=== PATIENT | male | born 1960 | race Caucasian/White ===

== ENCOUNTER 2021-03-07 14:52 | Inpatient (IN) | payer MEDICARE ==
[~2021-03-07] VITALS: Ht 165.1 cm; Wt 58.1 kg
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
[2021-03-07] MEDS ORDERED: MOME17SP (15:29)
[2021-03-07] MEDS ORDERED: DIVA500T2 PO (15:29)
[2021-03-07] MEDS ORDERED: LORA10TA68 PO (15:29)
[2021-03-07 15:52] VITALS: BP 125/75
[2021-03-07 16:00] VITALS: BP 125/72
[2021-03-07] MEDS ORDERED: MAG HYDROX/AL HYDROX/SIMETH 30 ML UDC PO PRN (16:00)
[2021-03-07] MEDS ORDERED: BLOOD SUGAR DIAGNOSTIC 1 EACH STRIP IN ONE (16:00)
[2021-03-07] MEDS ORDERED: MAGNESIUM HYDROXIDE 30 ML UDC PO PRN (16:00)
[2021-03-07] MEDS: NICOTINE PATCH (7MG) 7 MG PATCH.TD24 TD SCH ×2 (16:30→17:03)
[2021-03-07] MEDS: LORATADINE 10 MG TABLET PO SCH (17:30)
[2021-03-07] MEDS: MOMETASONE FUROATE NASAL SUSP 17 GM BOTTLE SCH (18:00)
--- NOTE | 2021-03-07 19:21 | NUR ---
GPS/RN PT REFUSED NICOTINE PATCH AND CLARITIN PO TODAY. ENDORSED TO MICRO PHOTOGRAPHER TO TRY TO DO SKIN ASSESSMENT.
[2021-03-07 20:55] VITALS: BP 117/78
--- NOTE | 2021-03-07 22:53 | NUR ---
RN NOTES: REFUSED SKIN ASSESSMENT AND PICTURES TAKEN PT. REFUSED FULL BODY SKIN ASSESSMENT AND PICTURES TAKEN AT THIS TIME, PER PT.I WANT SLEEP AND TIRED ,ENCOURAGED X3 RISKS /BENEFITS EXPLINED , PT. STRONGLY REFUSED.
--- NOTE | 2021-03-07 23:00 | NUR ---
RN NOTES : PT. ALLOWED ONLY VISUALLY BODY PARTS SKIN ASSEMENT AND PICTURES TAKEN AT THIS TIME. BUT PT. STILL REFUSED FULL BODY SKIN ASSESSMENT AND PICTURES TAKEN.
[2021-03-08] MEDS: LORAZEPAM 0.5 MG TABLET PO PRN ×3 (04:19→17:34)
--- NOTE | 2021-03-08 04:20 | NUR ---
RN NOTES: ANXIETY PT.C/O VERY ANXIOUS , RESTLESS , ATIVAN 0.5 MG GIVEN PER PT. REQUEST, WILL CONTINUE TO MONITOR.
[2021-03-08 06:51] LABS: ALBUMIN 2.5 g/dL (3.4-5.0); BILIRUBIN,TOTAL 0.2 mg/dL (0.2-1.0); CALCIUM, SERUM 7.7 mg/dL (8.5-10.1); CHOLESTEROL 120 mg/dL (<200); CREATININE 0.9 mg/dL (0.6-1.3); HDL CHOLESTEROL 37 mg/dL (40-60); LDL 66 mg/dL (0-99); TRIGLYCERIDES 183 mg/dL (30-150)
[2021-03-08 08:00] VITALS: BP 132/82
[2021-03-08] MEDS: NICOTINE PATCH (7MG) 7 MG PATCH.TD24 TD SCH ×2 (09:00→09:06)
[2021-03-08] MEDS: LORATADINE 10 MG TABLET PO SCH (09:06)
[2021-03-08] MEDS: MOMETASONE FUROATE NASAL SUSP 17 GM BOTTLE SCH (09:06)
--- NOTE | 2021-03-08 09:43 | NUR ---
given ativan for restlessness and agitation.
[2021-03-08] MEDS ORDERED: LORAZEPAM 0.5 MG TABLET PO ONE (10:00)
--- NOTE | 2021-03-08 10:03 | NUR ---
given extra ativan 0.5 mg for agitation per dr. bolaños's request.
[2021-03-08] MEDS: DIVALPROEX SODIUM 125 MG CAP.SPRINK PO SCH ×2 (13:00→16:37)
[2021-03-08] MEDS: risperiDONE 1 MG TABLET PO SCH ×2 (13:00→21:14)
--- NOTE | 2021-03-08 13:00 | NUR ---
1 PM MEDS HELD,PT. TOO SEDATED.
[2021-03-08 16:00] VITALS: BP 135/76
--- NOTE | 2021-03-08 17:39 | NUR ---
very restless,given ativan.
--- NOTE | 2021-03-08 18:08 | NUR ---
although had ativan,seems a little agitated.
[2021-03-08 20:45] VITALS: BP 146/89
--- NOTE | 2021-03-08 22:53 | NUR ---
MISTAKENLY DOCUMENTED ON EB'S ACCOUNT THE PREVIOUS MORNING RN.
[2021-03-09] MEDS: TEMAZEPAM 7.5 MG CAPSULE PO PRN (00:54)
--- NOTE | 2021-03-09 00:54 | NUR ---
RN NOTE PATIENT C/O INABILITY TO SLEEP. PER PT REQUEST PRN RESTORIL 7.5 MG 1 CAP PO HS PRN ADMINISTERED AT THIS TIME. WILL CONTINUE TO MONITOR
[2021-03-09 08:00] VITALS: BP 126/80
[2021-03-09] MEDS: risperiDONE 1 MG TABLET PO SCH ×2 (08:50→20:44)
[2021-03-09] MEDS: LORATADINE 10 MG TABLET PO SCH (08:50)
[2021-03-09] MEDS: DIVALPROEX SODIUM 125 MG CAP.SPRINK PO SCH ×3 (08:50→16:16)
[2021-03-09] MEDS: MOMETASONE FUROATE NASAL SUSP 17 GM BOTTLE SCH (08:51)
[2021-03-09] MEDS: NICOTINE PATCH (7MG) 7 MG PATCH.TD24 TD SCH (08:51)
[2021-03-09 16:00] VITALS: BP 138/87
[2021-03-09] MEDS: ACETAMINOPHEN 325 MG TABLET PO PRN (18:55)
[2021-03-09 20:00] VITALS: BP 128/77
[2021-03-09 20:46] VITALS: BP 128/77
[2021-03-10] MEDS: TEMAZEPAM 7.5 MG CAPSULE PO PRN ×2 (01:18→21:53)
--- NOTE | 2021-03-10 01:18 | NUR ---
GPS RN NOTE PATIENT C/O INABILITY TO SLEEP. PER PT REQUEST, PRN 1 CAPSULE OF RESTORIL 7.5 MG ADMINISTERED AT THIS TIME. WILL CONTINUE TO MONITOR.
[2021-03-10 08:00] VITALS: BP 127/78
[2021-03-10] MEDS: LORATADINE 10 MG TABLET PO SCH (08:37)
[2021-03-10] MEDS: risperiDONE 1 MG TABLET PO SCH ×3 (08:37→21:53)
[2021-03-10] MEDS: DIVALPROEX SODIUM 125 MG CAP.SPRINK PO SCH ×2 (08:37→12:38)
[2021-03-10] MEDS: NICOTINE PATCH (7MG) 7 MG PATCH.TD24 TD SCH (08:37)
[2021-03-10] MEDS: MOMETASONE FUROATE NASAL SUSP 17 GM BOTTLE SCH (08:39)
--- NOTE | 2021-03-10 10:17 | NUR ---
GPS HANDS PARTER: PSYCH F/U SEEN BY DR. YIP WITH ORDERS. ORDERS ACKNOWLEDGED.
--- NOTE | 2021-03-10 15:53 | NUR ---
Initial D/C plan: The pt. states that he has been residing with his cousin, Leeroy Knutson at[[facility]]. Pt. is unable to provide the completed address and a phone number and states he would like to return there once ready but is also open to placement. SW will continue to collaborate with psychiatrist to plan a safe & proper DC plan.
--- NOTE | 2021-03-10 15:54 | NUR ---
No Point of Contact: Pt. did not provide a point of contact at this time. SW will follow up as needed.
[2021-03-10 16:00] VITALS: BP 125/73
[2021-03-10] MEDS: DIVALPROEX SODIUM 500 MG TABLET.DR PO SCH (17:16)
[2021-03-10] MEDS: ACETAMINOPHEN 325 MG TABLET PO PRN (17:53)
[2021-03-10 20:00] VITALS: BP 125/73
[2021-03-11 08:00] VITALS: BP 119/74
[2021-03-11] MEDS: DIVALPROEX SODIUM 125 MG CAP.SPRINK PO SCH ×2 (08:57→13:36)
[2021-03-11] MEDS: risperiDONE 1 MG TABLET PO SCH ×3 (08:57→21:20)
[2021-03-11] MEDS: LORATADINE 10 MG TABLET PO SCH (08:57)
[2021-03-11] MEDS: NICOTINE PATCH (7MG) 7 MG PATCH.TD24 TD SCH (08:57)
[2021-03-11] MEDS: MOMETASONE FUROATE NASAL SUSP 17 GM BOTTLE SCH (08:59)
[2021-03-11 16:00] VITALS: BP 139/75
[2021-03-11] MEDS: DIVALPROEX SODIUM 500 MG TABLET.DR PO SCH (17:23)
[2021-03-11 20:00] VITALS: BP 129/78
[2021-03-11 20:05] VITALS: BP 129/78
[2021-03-11] MEDS: TEMAZEPAM 7.5 MG CAPSULE PO PRN (21:52)
--- NOTE | 2021-03-11 21:53 | NUR ---
RN NOTE: INSOMNIA PATIENT C/O INABILITY TO SLEEP. PER PT REQUEST RESTORIL 7.5 MG 1 CAP PO HS PRN ADMINISTERED, WILL CONTINUE TO MONITOR
[2021-03-12] MEDS: risperiDONE 1 MG TABLET PO SCH ×3 (07:42→21:00)
[2021-03-12] MEDS: DIVALPROEX SODIUM 125 MG CAP.SPRINK PO SCH ×2 (07:42→13:10)
[2021-03-12 08:00] VITALS: BP 134/81
[2021-03-12] MEDS: LORATADINE 10 MG TABLET PO SCH (08:06)
[2021-03-12] MEDS: MOMETASONE FUROATE NASAL SUSP 17 GM BOTTLE SCH (08:06)
[2021-03-12] MEDS: NICOTINE PATCH (7MG) 7 MG PATCH.TD24 TD SCH (08:06)
--- NOTE | 2021-03-12 12:22 | NUR ---
SNF Referral SW faxed clinicals to [facility], [facility] (fax: [phone]), for review.
[2021-03-12 16:00] VITALS: BP 128/73
[2021-03-12] MEDS: DIVALPROEX SODIUM 500 MG TABLET.DR PO SCH (16:35)
--- NOTE | 2021-03-12 16:49 | NUR ---
Probable Cause Hearing Pt's 5250 hold has been upheld for grave disability.
[2021-03-12 19:56] VITALS: BP 131/73
[2021-03-12] MEDS: TEMAZEPAM 7.5 MG CAPSULE PO PRN (21:44)
--- NOTE | 2021-03-12 21:50 | NUR ---
GPS-RN NOTE: INSOMNIA PATIENT C/O INABILITY TO SLEEP. PER PT REQUEST RESTORIL 7.5 MG 1 CAP PO HS PRN ADMINISTERED. WILL CONTINUE TO MONITOR
[2021-03-13 07:31] LABS: BASOPHILS % (AUTO) 0.5 % (0.0-2.0); EOSINOPHILS % (AUTO) 4.8 % (0.0-6.0); HEMATOCRIT 37 % (39-51); LYMPHOCYTES # (AUTO) 1.3 K/uL (0.8-4.8); LYMPHOCYTES % (AUTO) 15.5 % (20.0-44.0); MEAN CORPUSCULAR HGB CONC 33 g/dl (31.0-36.0); MEAN CORPUSCULAR VOLUME 90 fL (80-96); MONOCYTES # (AUTO) 0.8 K/uL (0.1-1.30); NEUTROPHILS # (AUTO) 5.9 K/uL (1.8-8.9); NEUTROPHILS % (AUTO) 69.2 % (43.0-81.0); PLATELET COUNT (AUTO) 160 K/uL (150-450); WHITE BLOOD COUNT (AUTO) 8.5 K/uL (4.3-11.0)
[2021-03-13 08:00] VITALS: BP 130/80
[2021-03-13] MEDS: DIVALPROEX SODIUM 125 MG CAP.SPRINK PO SCH ×2 (08:08→13:49)
[2021-03-13] MEDS: NICOTINE PATCH (7MG) 7 MG PATCH.TD24 TD SCH (08:08)
[2021-03-13] MEDS: risperiDONE 1 MG TABLET PO SCH ×3 (08:08→21:53)
[2021-03-13] MEDS: LORATADINE 10 MG TABLET PO SCH (08:08)
[2021-03-13] MEDS: MOMETASONE FUROATE NASAL SUSP 17 GM BOTTLE SCH (08:16)
[2021-03-13 08:26] LABS: ALBUMIN 2.7 g/dL (3.4-5.0); BILIRUBIN,TOTAL 0.1 mg/dL (0.2-1.0); CALCIUM, SERUM 8.3 mg/dL (8.5-10.1); CREATININE 0.7 mg/dL (0.6-1.3); POTASSIUM 4.1 mmol/L (3.5-5.1); TOTAL PROTEIN, SERUM 6.8 g/dL (6.4-8.2)
[2021-03-13] MEDS: LORAZEPAM 0.5 MG TABLET PO PRN (08:43)
--- NOTE | 2021-03-13 08:43 | NUR ---
RN-NOTES NOTED PATIENT PACING TALKING TO SELF,STATED "I'M HEARING VOICES TELLING ME TO GET OUT BECAUSE MY MOTHER IS ", REASSURED AND REDIRECTED PATIENT. ATIVAN 1MG P.O GIVEN PRN ORDER. WILL CONT. MONITORING FOR SAFETY AND BEHAVIOR.
--- NOTE | 2021-03-13 09:45 | NUR ---
RN-NOTES PATIENT IN THE DAY ROOM SITTING IN THE CHAIR,CALM,NO ACUTE DISTRESS NOTED.
--- NOTE | 2021-03-13 10:56 | NUR ---
SNF Update SW received update from [facility] that the pt has not been accepted. SS will continue to f/u on pt's D/C plan for SNF placement.
--- NOTE | 2021-03-13 11:05 | NUR ---
SNF Referral SW faxed clinicals to [facility] ([phone]) for review.
[2021-03-13 16:00] VITALS: BP 133/70
[2021-03-13] MEDS: DIVALPROEX SODIUM 500 MG TABLET.DR PO SCH (16:30)
--- NOTE | 2021-03-13 19:30 | NUR ---
GPS RN NOTE, RECEIVED PATIENT AWAKE AND IN BED, NO S/S OR COMPLAINTS OF PAIN AT THIS TIME. PATIENT IS DISPLAYING NO S/S OF APPARENT DISTRESS AT THIS TIME. PATIENT BREATHING IS UNLABORED WITH EQUAL RISE AND FALL OF THE CHEST. PATIENT IS ALERT AND ORIENTED X 3 ON ROOM AIR WITH A SPO2 98%. PATIENT IS COMPLIANT WITH MEDICATIONS, ANXIOUS, PACING, EASILY IRRITABLE, RESPONDING TO INTERNAL STIMULI, AND COOPERATIVE. PATIENT DENIES SUICIDAL AND HOMICIDAL IDEATIONS AT TIME. PATIENT EDUCATED ON THE USE OF THE CALL PASCUAL. PATIENT BED SIDE RAILS UP X 2 FOR SAFETY. PATIENT BED IS LOCKED, LOW, WITH BED ALARM ON. WILL CONTINUE TO MONITOR THIS PATIENT Q15 MINUTES WITH THE HELP OF STAFF TO MAINTAIN SAFETY.
[2021-03-13 20:00] VITALS: BP 115/74
[2021-03-13] MEDS: TEMAZEPAM 7.5 MG CAPSULE PO PRN (21:53)
--- NOTE | 2021-03-13 21:53 | NUR ---
GPS RN NOTE, PATIENT HAS A COMPLAINT OF NOT BEING ABLE TO SLEEP AND IS REQUESTING RESTORIL AT THIS TIME. PATIENT VITAL SIGNS ARE STABLE. GAVE RESTORIL 7.5MG PO HS PRN ORDERED. WILL REASSESS FOR INSOMNIA AND I WILL CONTINUE TO MONITOR THIS PATIENT WITH THE HELP OF STAFF.
[2021-03-14 08:00] VITALS: BP 140/81
[2021-03-14] MEDS: LORATADINE 10 MG TABLET PO SCH (08:32)
[2021-03-14] MEDS: DIVALPROEX SODIUM 125 MG CAP.SPRINK PO SCH ×2 (08:32→12:30)
[2021-03-14] MEDS: risperiDONE 1 MG TABLET PO SCH ×3 (08:32→20:52)
[2021-03-14] MEDS: NICOTINE PATCH (7MG) 7 MG PATCH.TD24 TD SCH (08:33)
[2021-03-14] MEDS: MOMETASONE FUROATE NASAL SUSP 17 GM BOTTLE SCH (08:33)
[2021-03-14 16:00] VITALS: BP 136/85
[2021-03-14] MEDS: DIVALPROEX SODIUM 500 MG TABLET.DR PO SCH (16:16)
[2021-03-14] MEDS: ACETAMINOPHEN 325 MG TABLET PO PRN (18:02)
[2021-03-14 20:15] VITALS: BP 132/79
[2021-03-14] MEDS: TEMAZEPAM 7.5 MG CAPSULE PO PRN (20:52)
--- NOTE | 2021-03-15 05:46 | NUR ---
GPS COMMODITY LOAN CLERK NOTE: Pt compliant with medication during shift, had PRN Restoril last night - for insomnia - effective- slept good 8 hrs. No significant change in clinical condition noted, VSS , pt now awake- well groomed - breathing even and unlabored, denies pain or discomfort @ this time, walking in the hallway. Cont to monitor safety and anticipate needs.
[2021-03-15 08:00] VITALS: BP 132/76
[2021-03-15] MEDS: NICOTINE PATCH (7MG) 7 MG PATCH.TD24 TD SCH (08:31)
[2021-03-15] MEDS: LORATADINE 10 MG TABLET PO SCH (08:31)
[2021-03-15] MEDS: DIVALPROEX SODIUM 125 MG CAP.SPRINK PO SCH ×2 (08:31→12:35)
[2021-03-15] MEDS: MOMETASONE FUROATE NASAL SUSP 17 GM BOTTLE SCH (08:32)
[2021-03-15] MEDS: risperiDONE 1 MG TABLET PO SCH ×3 (08:32→21:42)
[2021-03-15 16:00] VITALS: BP 126/79
[2021-03-15] MEDS: DIVALPROEX SODIUM 500 MG TABLET.DR PO SCH (16:37)
[2021-03-15] MEDS: LORAZEPAM 0.5 MG TABLET PO PRN (16:57)
--- NOTE | 2021-03-15 16:58 | NUR ---
N NOTE PATIENT YELLING SCREAMING ATIVAN 1 MG PO PRN . WILL CONTINUE TO MONITOR
[2021-03-15 20:34] VITALS: BP 117/67
[2021-03-15 20:37] VITALS: BP 117/67
--- NOTE | 2021-03-15 23:15 | NUR ---
RN NOTE PATIENT IS SLEEPING AT THIS TIME. NO BEHAVIOR EPISODE NOTED. CONTINUING TO MONITOR FOR ANY CHANGE OF CONDITION.
[2021-03-16 08:00] VITALS: BP 139/80
[2021-03-16] MEDS: NICOTINE PATCH (7MG) 7 MG PATCH.TD24 TD SCH (08:19)
[2021-03-16] MEDS: LORATADINE 10 MG TABLET PO SCH (08:20)
[2021-03-16] MEDS: risperiDONE 1 MG TABLET PO SCH ×3 (08:21→21:14)
[2021-03-16] MEDS: MOMETASONE FUROATE NASAL SUSP 17 GM BOTTLE SCH (08:21)
[2021-03-16] MEDS: DIVALPROEX SODIUM 125 MG CAP.SPRINK PO SCH ×2 (08:22→12:46)
[2021-03-16 16:00] VITALS: BP 131/74
[2021-03-16] MEDS: DIVALPROEX SODIUM 500 MG TABLET.DR PO SCH (17:04)
[2021-03-16] MEDS: ACETAMINOPHEN 325 MG TABLET PO PRN (18:01)
[2021-03-16 20:00] VITALS: BP 130/70
[2021-03-16 20:05] VITALS: BP 130/70
[2021-03-16] MEDS: TEMAZEPAM 7.5 MG CAPSULE PO PRN (22:51)
[2021-03-17 08:00] VITALS: BP 121/78
[2021-03-17] MEDS: risperiDONE 1 MG TABLET PO SCH ×3 (08:14→21:04)
[2021-03-17] MEDS: NICOTINE PATCH (7MG) 7 MG PATCH.TD24 TD SCH (08:14)
[2021-03-17] MEDS: LORATADINE 10 MG TABLET PO SCH (08:14)
[2021-03-17] MEDS: DIVALPROEX SODIUM 125 MG CAP.SPRINK PO SCH ×2 (08:14→13:30)
[2021-03-17] MEDS: MOMETASONE FUROATE NASAL SUSP 17 GM BOTTLE SCH (08:19)
[2021-03-17 16:00] VITALS: BP 126/75
[2021-03-17] MEDS: DIVALPROEX SODIUM 500 MG TABLET.DR PO SCH (16:07)
[2021-03-17] MEDS: ACETAMINOPHEN 325 MG TABLET PO PRN (19:31)
--- NOTE | 2021-03-17 19:35 | NUR ---
RN NOTE: PAIN PATIENT C/O BILATERAL FOOT PAIN 3, REQUESTED TO TAKE TYLENOL, PRN TYLENOL 650 MG PO ADMINISTERED.
[2021-03-17 19:54] VITALS: BP 122/72
[2021-03-17 20:04] VITALS: BP 122/72
[2021-03-18] MEDS: LORAZEPAM 0.5 MG TABLET PO PRN (07:12)
--- NOTE | 2021-03-18 07:14 | NUR ---
RN NOTE: ANXIETY PATIENT NOTED TO BE ANXIOUS, RESTLESS, HYPERVERBAL, PACING IN THE HALLWAY. PRN ATIVAN 1 MG PO ADMINISTERED.
[2021-03-18] MEDS: risperiDONE 1 MG TABLET PO SCH ×3 (07:42→21:23)
[2021-03-18] MEDS: DIVALPROEX SODIUM 125 MG CAP.SPRINK PO SCH ×2 (07:42→12:26)
[2021-03-18 08:00] VITALS: BP 126/76
[2021-03-18] MEDS: NICOTINE PATCH (7MG) 7 MG PATCH.TD24 TD SCH (08:04)
[2021-03-18] MEDS: MOMETASONE FUROATE NASAL SUSP 17 GM BOTTLE SCH (08:04)
[2021-03-18] MEDS: LORATADINE 10 MG TABLET PO SCH (08:04)
--- NOTE | 2021-03-18 16:09 | NUR ---
[facility] Signing Agent: CHARISSE spoke with Sophie leather case finisher from the [place] ([phone]) (F:[phone]) and wanted update on pt's status.
[2021-03-18 16:39] VITALS: BP 120/79
[2021-03-18] MEDS: BENZTROPINE MESYLATE (1 MG) 1 MG TABLET PO SCH (16:52)
[2021-03-18] MEDS: DIVALPROEX SODIUM 500 MG TABLET.DR PO SCH (16:52)
[2021-03-18 20:00] VITALS: BP 109/67
[2021-03-18 21:00] VITALS: BP 109/67
[2021-03-19] MEDS: ACETAMINOPHEN 325 MG TABLET PO PRN ×2 (06:21→16:17)
--- NOTE | 2021-03-19 06:21 | NUR ---
RN NOTE PATIENT C/O RIGHT SHOULDER PAIN 09/04 & WANTED TO TAKE TYLENOL. PRN TYLENOL 650 MG PO ADMINISTERED.
[2021-03-19 06:37] LABS: BASOPHILS # (AUTO) 0.1 K/uL (0.0-0.2); BASOPHILS % (AUTO) 0.9 % (0.0-2.0); EOSINOPHILS % (AUTO) 5.4 % (0.0-6.0); HEMATOCRIT 36 % (39-51); HEMOGLOBIN 11.8 g/dL (13.5-17.5); LYMPHOCYTES # (AUTO) 1.6 K/uL (0.8-4.8); LYMPHOCYTES % (AUTO) 20.3 % (20.0-44.0); MEAN CORPUSCULAR HGB CONC 33 g/dl (31.0-36.0); MEAN CORPUSCULAR VOLUME 88 fL (80-96); MONOCYTES # (AUTO) 0.7 K/uL (0.1-1.30); NEUTROPHILS % (AUTO) 64.4 % (43.0-81.0); PLATELET COUNT (AUTO) 164 K/uL (150-450); RED BLOOD CELL COUNT(AUTO) 4.08 MIL/uL (4.5-6.0); WHITE BLOOD COUNT (AUTO) 7.8 K/uL (4.3-11.0)
[2021-03-19 06:59] LABS: ALBUMIN 2.7 g/dL (3.4-5.0); BILIRUBIN,TOTAL 0.1 mg/dL (0.2-1.0); CREATININE 0.8 mg/dL (0.6-1.3); POTASSIUM 4.3 mmol/L (3.5-5.1); TOTAL PROTEIN, SERUM 6.5 g/dL (6.4-8.2)
[2021-03-19 08:00] VITALS: BP 120/79
[2021-03-19] MEDS: NICOTINE PATCH (7MG) 7 MG PATCH.TD24 TD SCH (08:05)
[2021-03-19] MEDS: DIVALPROEX SODIUM 125 MG CAP.SPRINK PO SCH ×2 (08:05→12:23)
[2021-03-19] MEDS: BENZTROPINE MESYLATE (1 MG) 1 MG TABLET PO SCH ×2 (08:05→16:17)
[2021-03-19] MEDS: LORATADINE 10 MG TABLET PO SCH (08:05)
[2021-03-19] MEDS: risperiDONE 1 MG TABLET PO SCH ×3 (08:05→21:46)
[2021-03-19] MEDS: MOMETASONE FUROATE NASAL SUSP 17 GM BOTTLE SCH (08:11)
[2021-03-19 16:00] VITALS: BP 131/75
[2021-03-19] MEDS: DIVALPROEX SODIUM 500 MG TABLET.DR PO SCH (16:19)
--- NOTE | 2021-03-19 16:20 | NUR ---
RN NOTE: PAIN PT C/O BILATERAL FOOT PAIN 09/04. MEDICATED WITH TYLENOL 650 MG PO PRN
[2021-03-19 20:00] VITALS: BP 153/79
[2021-03-20 08:00] VITALS: BP 136/69
[2021-03-20] MEDS: MOMETASONE FUROATE NASAL SUSP 17 GM BOTTLE SCH (08:04)
[2021-03-20] MEDS: LORAZEPAM 0.5 MG TABLET PO PRN (08:05)
[2021-03-20] MEDS: risperiDONE 1 MG TABLET PO SCH ×3 (08:05→21:20)
[2021-03-20] MEDS: DIVALPROEX SODIUM 125 MG CAP.SPRINK PO SCH ×2 (08:05→12:02)
[2021-03-20] MEDS: NICOTINE PATCH (7MG) 7 MG PATCH.TD24 TD SCH (08:05)
[2021-03-20] MEDS: LORATADINE 10 MG TABLET PO SCH (08:06)
[2021-03-20] MEDS: BENZTROPINE MESYLATE (1 MG) 1 MG TABLET PO SCH ×2 (08:06→16:22)
[2021-03-20 16:00] VITALS: BP 121/72
[2021-03-20] MEDS: DIVALPROEX SODIUM 500 MG TABLET.DR PO SCH (16:22)
--- NOTE | 2021-03-20 19:30 | NUR ---
GPS RN NOTE, RECEIVED PATIENT AWAKE AND IN BED, NO S/S OR COMPLAINTS OF PAIN AT THIS TIME. PATIENT IS DISPLAYING NO S/S OF APPARENT DISTRESS AT THIS TIME. PATIENT BREATHING IS UNLABORED WITH EQUAL RISE AND FALL OF THE CHEST. PATIENT IS ALERT AND ORIENTED X 3 ON ROOM AIR WITH A SPO2 98%. PATIENT IS COMPLIANT WITH MEDICATIONS, ANXIOUS AT TIMES, POLITE, INTERACTIVE, AND COOPERATIVE. PATIENT DENIES SUICIDAL AND HOMICIDAL IDEATIONS AT TIME. PATIENT EDUCATED ON THE USE OF THE CALL PASCUAL. PATIENT BED SIDE RAILS UP X 2 FOR SAFETY. PATIENT BED IS LOCKED, LOW, WITH BED ALARM ON. WILL CONTINUE TO MONITOR THIS PATIENT Q15 MINUTES WITH THE HELP OF STAFF TO MAINTAIN SAFETY.
[2021-03-20 20:12] VITALS: BP 147/81
[2021-03-21 07:02] LABS: BASOPHILS # (AUTO) 0.1 K/uL (0.0-0.2); BASOPHILS % (AUTO) 0.8 % (0.0-2.0); EOSINOPHILS % (AUTO) 4.8 % (0.0-6.0); HEMATOCRIT 37 % (39-51); HEMOGLOBIN 12.1 g/dL (13.5-17.5); LYMPHOCYTES # (AUTO) 1.7 K/uL (0.8-4.8); LYMPHOCYTES % (AUTO) 20.2 % (20.0-44.0); MEAN CORPUSCULAR HGB CONC 33 g/dl (31.0-36.0); MEAN CORPUSCULAR VOLUME 88 fL (80-96); MONOCYTES # (AUTO) 0.8 K/uL (0.1-1.30); MONOCYTES % (AUTO) 9.2 % (2.0-12.0); NEUTROPHILS # (AUTO) 5.6 K/uL (1.8-8.9); PLATELET COUNT (AUTO) 179 K/uL (150-450); RED BLOOD CELL COUNT(AUTO) 4.15 MIL/uL (4.5-6.0); WHITE BLOOD COUNT (AUTO) 8.6 K/uL (4.3-11.0)
[2021-03-21 07:26] LABS: ALBUMIN 2.8 g/dL (3.4-5.0); BILIRUBIN,TOTAL 0.1 mg/dL (0.2-1.0); CREATININE 0.8 mg/dL (0.6-1.3); POTASSIUM 4.3 mmol/L (3.5-5.1); TOTAL PROTEIN, SERUM 6.6 g/dL (6.4-8.2)
[2021-03-21 08:00] VITALS: BP 151/88
[2021-03-21] MEDS: NICOTINE PATCH (7MG) 7 MG PATCH.TD24 TD SCH (08:03)
[2021-03-21] MEDS: DIVALPROEX SODIUM 500 MG TABLET.DR PO SCH ×2 (08:03→12:34)
[2021-03-21] MEDS: LORATADINE 10 MG TABLET PO SCH (08:03)
[2021-03-21] MEDS: BENZTROPINE MESYLATE (1 MG) 1 MG TABLET PO SCH (08:03)
[2021-03-21] MEDS: risperiDONE 1 MG TABLET PO SCH ×2 (08:03→12:34)
[2021-03-21] MEDS: MOMETASONE FUROATE NASAL SUSP 17 GM BOTTLE SCH (08:08)
--- NOTE | 2021-03-21 08:12 | NUR ---
SW DISCHARGE NOTE: Patient will be discharged to nursing home facility [facility] [address], [place] [address]; ). Please arrange transportation at 1PM. Beamster spoke with Ronny admissions officer at [facility]; ([phone], who stated patient will be accepted today. Patient does not have any family to contact. Patient is alert and oriented x3 and is unable to plan for self-care. Patient denies any suicidal or homicidal ideations. Patient is aware and agreeable with discharge plans. Patient will continue to follow-up with (psychiatrist) Dr. Wasserman [address], [place] [address]; ([phone]) and (colored leather setter) Dr. Loera [address] [facility] [address], [place] [address]; ([phone]). Patient presents with euthymic and congruent mood.
--- NOTE | 2021-03-21 13:25 | NUR ---
RN-NOTES RECEIVED T.O ORDER FROM PSYCHIATRIST( DR. YIP),LEAD COOK (DR. ROCHA) MEDICALLY CLEARED PATIENT FOR DISCHARGE. PATIENT DID NOT VERBALIZE SI/HI,DENIES VISUAL/AUDITORY HALLUCINATIONS AT THE TIME OF DISCHARGE. REPORT WAS GIVEN TO LORENA ( FACILITY BIRD SITTER STAFF). PATIENT LEFT THE UNIT IN STABLE CONDITION A/O 3,AMBULATORY STEADY GAIT WITH ALL BELONGINGS.INTERLACER BY AMBULANCE VIA GURNEY WITH TWO STAFF ASSIST. NO FAMILY TO NOTIFY ON THE DISCHARGED.
== END 2021-03-21 13:25 | DRG 885 ==
LOC: GPS 14:52
PROVIDERS: ADMIT Psychiatry & Neurology Psychosomatic Medicine; ATTEND Family Medicine
DX: F25.0 Schizoaffective disorder, bipolar type (principal); G92 Toxic encephalopathy; Z59.0 Homelessness; F14.90 Cocaine use, unspecified, uncomplicated; G31.84 Mild cognitive impairment of uncertain or unknown etiology; F19.10 Other psychoactive substance abuse, uncomplicated; Z72.0 Tobacco use; R79.89 Other specified abnormal findings of blood chemistry
CPT/HCPCS: 36415; 80053-TC; 80061-TC; 80164-TC; 82962-TC; 85025-TC; 87081-TC